=== PATIENT | female | born 1995 | race Asian ===

== ENCOUNTER 2019-05-04 14:00 | Inpatient (IN) | payer OTHER ==
[~2019-05-04] VITALS: Ht 154.9 cm; Wt 76.7 kg
[2019-05-21] MEDS ORDERED: PRENATAL 19 TA1 EAC1 PO (22:44)
== END 2019-05-23 13:57 | disposition home or self-care (01) | DRG 807 ==
LOC: OB/GYN 14:00 → LDR 05-21 15:31 → OB/GYN 05-21 22:22
PROVIDERS: ADMIT Obstetrics & Gynecology Maternal & Fetal Medicine
PROC: 10E0XZZ Delivery of Products of Conception, External Approach (ICD-10-PCS; principal; 2019-05-21)
PROC: 0UQMXZZ Repair Vulva, External Approach (ICD-10-PCS; 2019-05-21)
PROC: 0W8NXZZ Division of Female Perineum, External Approach (ICD-10-PCS; 2019-05-21)
PROC: 10907ZC Drainage of Amniotic Fluid, Therapeutic from Products of Conception, Via Natural or Artificial Opening (ICD-10-PCS; 2019-05-21)
PROC: 3E033VJ Introduction of Other Hormone into Peripheral Vein, Percutaneous Approach (ICD-10-PCS; 2019-05-21)
PROC: 4A1HXCZ Monitoring of Products of Conception, Cardiac Rate, External Approach (ICD-10-PCS; 2019-05-21)
DX: O70.0 First degree perineal laceration during delivery (principal); Z37.0 Single live birth; Z3A.39 39 weeks gestation of pregnancy; Z22.330 Carrier of Group B streptococcus

== ENCOUNTER 2019-05-20 15:01 | Outpatient (CLI) | payer OTHER ==
[2019-05-21] MEDS ORDERED: PRENATAL 19 TA1 EAC1 PO (22:44)
== END 2019-05-20 15:23 | disposition home or self-care (01) ==
LOC: NST 15:01
DX: Z34.83 Encounter for supervision of other normal pregnancy, third trimester (principal)